=== PATIENT | female | born 1955 | race Caucasian/White ===

== ENCOUNTER 2018-01-26 10:04 | Emergency (ER) | END 2018-01-26 12:51 | disposition home or self-care (01) ==

== ENCOUNTER 2018-11-25 10:51 | Emergency (ER) | payer BC ==
[~2018-11-25] VITALS: Ht 162.6 cm; Wt 115.0 kg
[~2018-11-25 10:51] MED LIST: CEPH-443 PO; CLON-379 PO
[2018-11-25 10:54] VITALS: Ht 162.6 cm; Wt 115.0 kg
[2018-11-25] MEDS ORDERED: DILTIAZEM 25 MG INJ ONE (11:24)
[2018-11-25] MEDS ORDERED: DILTIAZEM 25 MG INJ IV ONE ×2 (12:00)
[2018-11-25] MEDS ORDERED: METOPROLOL 5 MG INJ IV ONE (12:30)
[2018-11-25] MEDS ORDERED: LISI40TA3 PO (12:42)
[2018-11-25] MEDS ORDERED: PRAV40TA76 PO (12:42)
[2018-11-25] MEDS ORDERED: METF500T24 PO (12:42)
[2018-11-25] MEDS ORDERED: GLIM2TAB PO (12:42)
[2018-11-25] MEDS ORDERED: METOPROLOL 25 MG TAB PO ONE (13:00)
--- NOTE | 2018-11-25 14:19 | ERD ---
ER Documentation Chief Complaint Chief Complaint chest pain radiating to lt shoulder and jaw since 0700 am HPI 63-year-old female presenting with onset of aching chest pain that radiates to her shoulders and her jaw. Her symptoms started at 7 AM when she woke up. She initially felt some back pain that radiated to the front of her chest. Some of her pain is burning and some is pressure-like. Pain has been continuous. She had associated shortness of breath with walking from her car to the hospital. She has never experienced this before. She denies any associated dizziness, nausea, vomiting, diaphoresis. She is denying any palpitations at this time. She denies any history of arrhythmia or cardiac problems. ROS All systems reviewed and are negative except as per history of present illness. Medications Home Meds Reported Medications Pravastatin Sodium* (Pravastatin Sodium*) 40 Mg Tablet, 40 MG PO HS, TAB 11/25/18 Metformin Hcl* (Metformin Hcl*) 500 Mg Tablet, 500 MG PO WITH BREAKFAST DINNE, #60 TAB 11/25/18 Glimepiride* (Glimepiride*) 2 Mg Tablet, 2 MG PO WITH BREAKFAST DINNE, TAB 11/25/18 Lisinopril* (Lisinopril*) 40 Mg Tablet, 40 MG PO DAILY, #30 TAB 11/25/18 Discontinued Scripts Clonidine Hcl* (Clonidine Hcl*) 0.1 Mg Tab, 0.1 MG PO Q4H PRN for elevated blood pressure , #10 TAB Prov:MAXWELL MONTGOMERY MD 01/26/18 Cephalexin* (Keflex*) 500 Mg Capsule, 500 MG PO QID for 7 Days, CAP Prov:MAXWELL MONTGOMERY MD 01/26/18 Allergies Allergies: Coded Allergies: acetaminophen (Verified Allergy, Unknown, 11/25/18) hydrocodone (Verified Allergy, Unknown, 11/25/18) PMhx/Soc History of Surgery: No Anesthesia Reaction: No Hx Neurological Disorder: No Hx Respiratory Disorders: No Hx Cardiac Disorders: Yes (low blood pressure) Hx Miscellaneous Medical Probl: Yes (R hand infection,DIABETES) Hx Alcohol Use: No Hx Substance Use: No Hx Tobacco Use: No Smoking Status: Never smoker FmHx Family History: coronary disease; No diabetes Physical Exam Vitals Vital Signs Date Temp Pulse Resp B/P (MAP) Pulse Ox O2 O2 Flow FiO2 Time Delivery Rate 11/25/18 114 18 134/91 98 Nasal 12:31 (105) Cannula 11/25/18 143 18 135/112 98 Nasal 12:04 (120) Cannula 11/25/18 Nasal 2 11:58 Cannula 11/25/18 97.0 116 18 118/74 96 10:54 (89) Physical Exam Const: No acute distress, well-appearing, nontoxic Head: Atraumatic Eyes: Normal Conjunctiva, PERRLA ENT: Normal External Ears, Nose and Mouth. Neck: Full range of motion. No meningismus. No JVD Resp: Clear to auscultation bilaterally Cardio: Irregularly irregular rhythm, tachycardic,. 2+ distal pulses no murmurs Abd: Soft, non tender, non distended. Normal bowel sounds Skin: Warm and dry. No petechiae or rashes Back: No midline or flank tenderness Ext: No cyanosis, or edema. No calf tenderness Neur: Awake and alert Psych: Normal Mood and Affect Result Diagram: 11/25/18 1229 11/25/18 1229 Results 24 hrs Laboratory Tests Test 11/25/18 12:29 White Blood Count 10.0 10^3/ul Red Blood Count 5.88 10^6/ul Hemoglobin 16.2 g/dl Hematocrit 49.8 % Mean Corpuscular Volume 84.7 fl Mean Corpuscular Hemoglobin 27.6 pg Mean Corpuscular Hemoglobin Concent 32.5 g/dl Red Cell Distribution Width 13.0 % Platelet Count 275 10^3/UL Mean Platelet Volume 12.5 fl Immature Granulocytes % 0.500 % Neutrophils % 72.5 % Lymphocytes % 18.1 % Monocytes % 5.7 % Eosinophils % 2.7 % Basophils % 0.5 % Nucleated Red Blood Cells % 0.0 /100WBC Immature Granulocytes # 0.050 10^3/ul Neutrophils # 7.3 10^3/ul Lymphocytes # 1.8 10^3/ul Monocytes # 0.6 10^3/ul Eosinophils # 0.3 10^3/ul Basophils # 0.1 10^3/ul Nucleated Red Blood Cells # 0.0 10^3/ul Sodium Level 137 mmol/L Potassium Level 4.4 mmol/L Chloride Level 101 mmol/L Carbon Dioxide Level 24 mmol/L Anion Gap 12 Blood Urea Nitrogen 15 mg/dl Creatinine 0.83 mg/dl Est Glomerular Filtrat Rate mL/min > 60 mL/min Glucose Level 408 mg/dl Calcium Level 8.8 mg/dl Troponin I 0.078 ng/ml Current Medications Medications Dose Sig/Jose M Start Time Status Last (Trade) Ordered Route PRN Stop Time Admin Dose Reason Admin Diltiazem 25 mg STK-MED 11/25/18 DC HCl ONCE .ROUTE 11:24 11/25/18 (Cardizem Iv) 11:25 Diltiazem 20 mg ONCE ONCE 11/25/18 DC 11/25/18 HCl IV 12:00 11/25/18 11:55 (Cardizem Iv) 12:01 Diltiazem 10 mg ONCE ONCE 11/25/18 DC 11/25/18 HCl IV 12:00 11/25/18 11:56 (Cardizem Iv) 12:01 Metoprolol 5 mg ONCE ONCE 11/25/18 DC 11/25/18 Tartrate IV 12:30 11/25/18 12:17 (Lopressor) 12:31 Metoprolol 25 mg ONCE ONCE 11/25/18 DC Tartrate PO 13:00 11/25/18 (Lopressor) 13:01 Procedures/MDM EMERGENT LABS AND DIAGNOSTIC STUDIES: Lab Results above were reviewed and interpreted by me. CBC: no anemia or evidence of infection BMP: Hyperglycemic. No evidence of clinically significant electrolyte abnormality, acidosis, renal failure, hypoglycemia Troponin within normal limits, not indicative of cardiac ischemia 12-lead EKG #1 was interpreted by Ruth Mathews MD: Atrial fibrillation with RVR at 165 bpm Normal axis Normal intervals ST and T wave abnormalities, likely rate dependent. No STEMI EKG #2: Rate/Rhythm: [Normal Sinus Rhythm] QRS, ST, T-waves: [No changes consistent w/ acute ischemia] Impression: [No evidence of ischemia or arrhythmia] Radiology Results as interpreted by Radiology below were reviewed by Viraj Mathews MD: Chest x-ray shows no acute abnormalities Initial Nursing notes reviewed. Previous Medical Records requested via the Electronic Health Record. EMERGENCY DEPARTMENT COURSE / MEDICAL DECISION MAKING: Patient is presenting with new onset A. fib with RVR. She is perfusing well on exam. She is hemodynamically stable. She was treated initially with diltiazem, total 30 mg IV without response. She was subsequently treated with metoprolol 5 mg IV with good response. Her tachycardia resolved and she converted back to normal sinus rhythm. There is no evidence of acute coronary syndrome on work-up or repeat EKG. No evidence of sepsis, doubt ACS, doubt PE. Patient will require admission for further work-up and management. I spoke with her IPA, Mj, and they have accepted her for transfer to [facility] to telemetry. Critical Care Time: 45 minutes Treatments/Evaluations: Close monitoring and treatment of unstable vital signs, cardiorespiratory, and neurologic status, while maintaining tight balance of fluid, respiratory, and cardiac interventions. This time includes discussing the case with the patient and the patients family. This time does not include all procedures stated elsewhere in this record. This time also includes reviewing old records, labs and radiological studies. This time includes examining and re-examining the patient. Additionally, this time also includes arranging care with admitting and consulting physicians. Departure Diagnosis: Primary Impression: Atrial fibrillation with RVR Additional Impressions: Chest pain Chest pain type: unspecified Qualified Codes: R07.9 - Chest pain, unspecified Hyperglycemia Condition: Serious OSCAR MATHEWS MD Nov 25, 2018 14:19
[2018-11-25] MEDS ORDERED: SOD CHLORIDE 0.9% 1,000 ML IV STA (14:34)
[2018-11-25] MEDS ORDERED: metFORMIN 500 MG TAB PO ONE (15:00)
[2018-11-25] MEDS ORDERED: ASPIRIN 81 MG TAB PO ONE (15:00)
[2018-11-25] MEDS ORDERED: GLIMEPIRIDE 2 MG TAB PO ONE (15:00)
[2018-11-25 17:26] VITALS: BP 160/85; PULSE 62; RESP 13
== END 2018-11-25 17:51 | disposition short-term general hospital (02) ==
LOC: E/R 10:51
DX: I48.91 Unspecified atrial fibrillation (principal); E11.65 Type 2 diabetes mellitus with hyperglycemia; Z79.84 Long term (current) use of oral hypoglycemic drugs
CPT/HCPCS: 36415; 71045; 80048; 82962; 84484; 85025; 93005; 96374; 96375; 99285; J7030